=== PATIENT | female | born 1965 | race Two or more races ===

== ENCOUNTER 2022-10-09 07:30 | Outpatient (CLI) | payer OTHER | END 2022-10-09 09:45 | disposition home or self-care (01) | LOC: LAB 07:30 | PROVIDERS: ATTEND Orthopaedic Surgery | DX: D64.89 Other specified anemias (principal); E88.9 Metabolic disorder, unspecified; D68.8 Other specified coagulation defects; N39.0 Urinary tract infection, site not specified; Z22.322 Carrier or suspected carrier of Methicillin resistant Staphylococcus aureus; I49.9 Cardiac arrhythmia, unspecified; I10 Essential (primary) hypertension; Z76.89 Persons encountering health services in other specified circumstances; M25.511 Pain in right shoulder; M25.112 Fistula, left shoulder ==

== ENCOUNTER 2023-07-31 08:19 | Outpatient (CLI) | payer OTHER | END 2023-07-31 14:08 | disposition home or self-care (01) | LOC: LAB 08:19 | PROVIDERS: ATTEND Orthopaedic Surgery | DX: E56.1 Deficiency of vitamin K (principal); E55.9 Vitamin D deficiency, unspecified; M85.9 Disorder of bone density and structure, unspecified ==